=== PATIENT | male | born 1945 | race Caucasian/White ===

== ENCOUNTER 2022-07-07 13:15 | Emergency (ER) | payer OTHER ==
[~2022-07-07] VITALS: Ht 177.8 cm; Wt 84.4 kg
--- NOTE | 2022-07-07 13:26 | NUR ---
DR SHARP AT BEDSIDE FOR EVAL.
[2022-07-07 13:46] VITALS: BP 126/72
--- NOTE | 2022-07-07 13:46 | NUR ---
PT SIMIN FROM THE STREETS C/O DIFFUSE ABDOMINAL PAIN FOR THE PAST WEEK. 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 AWAITING MD RUTLEDGE.
[2022-07-07 15:01] LABS: ALBUMIN 3.3 g/dL (3.4-5.0); BILIRUBIN,DIRECT 0.1 mg/dL (0.0-0.2); BILIRUBIN,TOTAL 0.3 mg/dL (0.2-1.0); CALCIUM, SERUM 8.8 mg/dL (8.5-10.1); CREATININE 0.8 mg/dL (0.6-1.3); POTASSIUM 3.9 mmol/L (3.5-5.1); TOTAL PROTEIN, SERUM 6.4 g/dL (6.4-8.2)
[2022-07-07 15:02] LABS: BASOPHILS # (AUTO) 0.1 K/uL (0.0-0.2); BASOPHILS % (AUTO) 0.9 % (0.0-2.0); EOSINOPHILS % (AUTO) 2.8 % (0.0-6.0); HEMATOCRIT 32 % (39-51); HEMOGLOBIN 10.3 g/dL (13.5-17.5); LYMPHOCYTES # (AUTO) 1.8 K/uL (0.8-4.8); MEAN CORPUSCULAR HGB CONC 32 g/dl (31.0-36.0); MEAN CORPUSCULAR VOLUME 87 fL (80-96); MONOCYTES # (AUTO) 0.6 K/uL (0.1-1.30); MONOCYTES % (AUTO) 10.3 % (2.0-12.0); PLATELET COUNT (AUTO) 265 K/uL (150-450); RED BLOOD CELL COUNT(AUTO) 3.69 MIL/uL (4.5-6.0); WHITE BLOOD COUNT (AUTO) 5.6 K/uL (4.3-11.0)
[2022-07-07] MEDS ORDERED: PIPERACILLIN /TAZOBACTAM 3.375 G in IV D5W 50 ML IV ONE (15:30)
--- NOTE | 2022-07-07 15:34 | NUR ---
PT NO LONGER IN ED BED 15, ELOPED. DR SHARP MADE AWARE.
== END 2022-07-07 15:42 | disposition left against medical advice (07) ==
LOC: ER 13:20
DX: R10.13 Epigastric pain (principal); Z88.1 Allergy status to other antibiotic agents
CPT/HCPCS: 99284; 74176; 93005; 84145; 85025; 80048; 83605; 83690; 80076; 36415; 85730; J2543; J7060